=== PATIENT | male | born 1955 | race Caucasian/White ===

== ENCOUNTER 2020-10-18 15:17 | Inpatient (IN) | payer OTHER ==
[~2020-10-18] VITALS: Ht 69 cm; Wt 89.0 kg
--- NOTE | 2020-10-18 16:43 | Conscious Sedation/ASA ---
Conscious Sedation Pre-Proced Time 16:00 ASA Score 3 For ASA 3 and 4: Consider anesthesia and medical clearance. Also, for patients with a history of failed moderate sedation consider anesthesia. Airway Lungs Heart ASA score ASA 1: a normal healthy patient ASA 2: a patient with a mild systemic disease (mid diabetes, controlled hypertension, obesity x ASA 3: a patient with a severe systemic disease that limits activity (angina, COPD, prior Myocardial infarction) ASA 4: a patient with an incapacitating disease that is a constant threat to life (CHF, renal failure) ASA 5: a moribund patient not expected to survive 24 hrs. (ruptured aneurysm) ASA 6: a declared brain- patient whose organs are being harvested. For emergent operations, add the letter E after the classification Mallampati Classification Grade 3 Sedation Plan Analgesia, Amnesia, Plan communicated to team members, Discussed options with patient/fam, Discussed risks with patient/fam The patient is an appropriate candidate to undergo the planned procedure, sedation, and anesthesia. The patient immediately re-assessed prior to indication. CHELY MARIN MD October 18, 2020 16:43
[2020-10-18] MEDS ORDERED: PATIENT MAY USE OWN MEDS, ALL PO SCH (16:45)
--- NOTE | 2020-10-18 16:48 | Consultation-Cardiology ---
HPI-Cardiology Cardiology Consultation Date of Consultation 10/18/20 Date of Admission Time Seen by Provider: 16:43 Indication: Acute ST elevation myocardial infarction HPI 65 years old gentleman with no known past medical history, started to have chest pain in the retrosternal area around 11 AM, went to the emergency room in [facility] noted to have ST elevation, given morphine, aspirin and Plavix, reporting improvement in his chest pain, noted to have persistent in the ST elevation. No smoking, no alcohol, suffered from COVID-19 infection in June 2020 and he did not feel well after that infection. Home Medications & Allergies Allergies: Coded Allergies: No Known Drug Allergies (Unverified , 10/18/20) Home Medication List Reviewed: Yes [id number] Hx Patient Social History Marital Status: Employed/Student: employed Past Medical History Discussed below Family Medical History Family Medical Hx Noncontributory Review of Systems-General Review of Systems Constitutional: see HPI, malaise, weakness EENTM: see HPI, no symptoms reported Respiratory: see HPI; No cough, No dyspnea on exertion, No hemoptysis, No orthopnea, No phlegm, No short of breath, No stridor, No wheezing, No other Cardiovascular: see HPI, chest pain; No edema, No Hx of Intervention, No palpitations, No syncope, No vascular heart diseas, No other Gastrointestinal: no symptoms reported, see HPI Genitourinary: no symptoms reported, see HPI Musculoskeletal: no symptoms reported, see HPI Skin: no symptoms reported, see HPI Psychiatric/Neurological: No Symptoms Reported, See HPI Physical Exam Physical Exam Vital Signs Capillary Refill : Height, Weight, BMI Height: '" Weight: lbs. oz. kg; BMI Method: General Appearance: No Apparent Distress, WD/WN Eyes: Bilateral Eye Normal Inspection, Bilateral Eye PERRL, Bilateral Eye EOMI HEENT: PERRL/EOMI, TMs Normal, Normal ENT Inspection, Pharynx Normal, Moist Mucous Membranes Neck: Full Range of Motion, Normal Inspection, Non Tender, Supple, Carotid Bruit Respiratory: Chest Non Tender, Normal Breath Sounds, No Accessory Muscle Use, No Respiratory Distress Cardiovascular: Regular Rate, Rhythm, No Edema, No Gallop, No JVD, No Murmur, Normal Peripheral Pulses Gastrointestinal: Normal Bowel Sounds, No Organomegaly, No Pulsatile Mass, Non Tender, Soft Back: Normal Inspection, No CVA Tenderness, No Vertebral Tenderness Extremity: Normal Capillary Refill, Normal Inspection, Normal Range of Motion, Non Tender, No Calf Tenderness, No Pedal Edema Neurologic/Psychiatric: Alert, Oriented x3, No Motor/Sensory Deficits, Normal Mood/Affect Skin: Normal Color, Warm/Dry Lymphatic: No Adenopathy A/P-Cardiology Admission Diagnosis Acute ST elevation myocardial infarction Coronary artery disease Hypertension Hyperlipidemia Assessment/Plan Acute ST elevation myocardial infarction, emergency cardiac catheterization was carried out with stenting to the circumflex artery with excellent results. Continue on aspirin and Plavix and monitor Coronary artery disease, cardiac catheterization was carried out on October 18, 2020 showing ruptured plaque in the mid circumflex artery large dominant artery, successful balloon angioplasty and stenting using Rocio 3 x 23 mm expanded to 3.5 mm with excellent results. The LAD and right coronary artery has mild disease nonobstructive disease. Door to balloon time was 19 minutes. Hypertension, starting beta-blockers, monitor blood pressure Hyperlipidemia, starting Lipitor 80 mg, evaluate lipid profile Status post recent COVID-19 infection, recovered in June 2020. Still complaining of fatigue CHELY MARIN MD October 18, 2020 16:47
--- NOTE | 2020-10-18 16:53 | Cardiac Cath Report ---
Cardiac Cath Report Physician (s)/Manager Materials Management (s) Physician CHELY MARIN MD Pre-Procedure Diagnosis Pre-Procedure Diagnosis: Acute ST elevation myocardial infarction Post-Procedure Note Procedure Start Date: October 18, 2020 Name of Procedure: Left heart catheterization Emergency stenting to the left circumflex artery Findings/Procedure Note PROCEDURE NOTE: 65 years old gentleman with history of hypertension, recent COVID-19 infection, admitted with acute ST elevation myocardial infarction, Deckhand Engineer team were called, emergency cardiac catheterization was carried out. After explaining the procedure to the patient, all pros and cons were explained, all questions were answered. The patient signed the consent and then he was placed on the cardiac catheterization laboratory. Groin was prepped SL fashion local anesthesia was used. Sheath placed in the right femoral artery. Adelaide right and left catheter were used to access the coronary system. Pigtail was us ed to access the left ventricular cavity. Left ventriculogram was done Patient received 6000 units of heparin, FL guide was advanced to the left coronary system, BMW wire was advanced and parked in the distal circumflex artery, patient had ulcerated plaque in the mid circumflex artery just above the trifurcation, predilatation with 2.5 x 20 mm balloon, door to balloon time was 19 minutes, multiple inflation then I proceeded with deployment of Rocio 3 x 23 mm deployed under 15 jonathon then I used 3.5 noncompliant balloon to post dilate with excellent results. At the end of the procedure the sheath was removed. Closure device was deployed FINDINGS: Hemodynamics LV 125/6 end-diastolic pressure of 6 Aorta 127/77 mean of 95 ANATOMY: Left Main is free of obstructive disease Left Anterior Descending has mild disease nonobstructive disease Left Circumflex is large dominant artery with ulcerated plaque in the mid circumflex artery just above the trifurcation, successful balloon angioplasty with door to balloon time 19 minutes using 2.5 x 20 mm balloon then deployment of Rocio drug-eluting stent 3.0 x 23 mm postdilated with 3.5 NC Quantum balloon with excellent results Right Coronary Artery has mild disease nonobstructive disease LV Gram was done showing normal left ventricular size, normal systolic function, ejection fraction 60% CONCLUSION: 1. Ulcerated plaque in the mid circumflex artery with successful emergency angioplasty and stenting with door to balloon time 19 minutes, deployment of Rocio 3.0 x 23 mm stent postdilated to 3.5 mm with excellent results 2. Otherwise mild coronary artery disease nonobstructive disease 3. Normal left ventricular size and systolic function estimate ejection fraction 60% DISCUSSION AND RECOMMENDATION: Maximize medical therapy, started on aspirin Plavix, Lipitor and Toprol. Continue to monitor Anesthesia Type: Conscious Sedation Estimated blood loss (mL): 25 ml Contrast Amount: 80 ml Total Radiation Dose: 932 mGy Post-Procedure Diagnosis Post-operative diagnosis: Acute ST elevation myocardial infarction Coronary artery disease Hypertension Hyperlipidemia CHELY MARIN MD October 18, 2020 16:53
[2020-10-18] MEDS ORDERED: NITRO DRIP 25000 MCG/D5W 250 ML IV ONE (16:58)
[2020-10-18] MEDS ORDERED: HEParin (CATH LAB) 2,000 ML IV ONE (16:58)
[2020-10-18] MEDS ORDERED: HEParin 1000 UNIT/ML (10ML VIAL) FOR BOLUS ONE (16:58)
[2020-10-18] MEDS ORDERED: MIDAZOLAM 5 MG/5 ML (VERSED) VIAL ONE (16:58)
[2020-10-18] MEDS ORDERED: LIDOCAINE 1% INJ 20 ML 20 ML VIAL ONE (16:58)
[2020-10-18] MEDS ORDERED: NS IV 1000 ML 1,000 ML ONE (16:58)
[2020-10-18] MEDS ORDERED: fentaNYL INJ 100 MCG/2 ML AMP ONE (16:58)
[2020-10-18] MEDS: NS IV 1000 ML 1,000 ML IV SCH (17:00)
--- NOTE | 2020-10-18 17:02 | History & Physical ---
History of Present Illness HPI/Chief Complaint CC: STEMI s/p emergent cath with intervention HPI: This is a 65yoWM relatively new clinic patient of mine since 06/2020 when he was dx with COVID PNA and spent several days at [facility] recovering who had no PMH until COVID but dx with new onset DM with HGA1C of 11.8 and he failed PO OHA so he was maintained on insulin with excellent results who presented to the [facility] ER at 1505 with chest pain and was found to have persistent STEMI prompting emergent transfer to [facility] lab support technician at ~[address] Dowd performed an emergent cath procedure revealing large clot in large dominant circumflex artery requiring balloon and placement of stent with excellent results with door to needle time of 19 minutes. was updated in waiting room. Source: patient, RN/MD, old records Exam Limitations: clinical condition Date Seen 10/18/20 Time Seen by a Provider: 16:45 Attending Physician Anita Dowd MD PCP No,Local Physician Referring Physician Date of Admission October 18, 2020 at 16:25 Home Medications & Allergies Home Medications Reviewed patient Home Medication Reconciliation performed by pharmacy medication reconciliations wireless field technician and/or nursing. Patients Allergies have been reviewed. Allergies Allergies Coded Allergies No Known Drug Allergies (Unverified10/18/20) Past Yufuvtc-Amsfnn-Hqezze Hx Past Med/Social Hx: Reviewed Nursing Past Med/Soc Hx, Reviewed and Corrections made Patient Social History Marrital Status: Employed/Student: employed Alcohol Use: Denies Use Smoking Status: Never a Smoker Past Medical History Respiratory: Pneumonia COVID-19 06/2020 Endocrine: Diabetes, Insulin dep (06/2020) Review of Systems Constitutional: see HPI Cardiovascular: chest pain Physical Exam Physical Exam Vital Signs Vital Signs - First Documented 10/18/20 10/18/20 10/18/20 17:00 17:15 18:15 Temp 37.2 Pulse 75 Resp 13 B/P (MAP) 129/76 (93) Pulse Ox 96 O2 Delivery Nasal Cannula O2 Flow Rate 2.00 Capillary Refill : Height, Weight, BMI Height: '" Weight: lbs. oz. kg; BMI Method: General Appearance: No Apparent Distress, WD/WN Eyes: Bilateral Eye Normal Inspection, Bilateral Eye PERRL, Bilateral Eye EOMI HEENT: PERRL/EOMI, Normal ENT Inspection, Pharynx Normal, Moist Mucous Membranes Neck: Full Range of Motion, Normal Inspection, Non Tender, Supple, Carotid Bruit Respiratory: Chest Non Tender, Normal Breath Sounds, No Accessory Muscle Use, No Respiratory Distress Cardiovascular: Regular Rate, Rhythm, No Edema, No Gallop, No JVD, No Murmur, Normal Peripheral Pulses Gastrointestinal: Normal Bowel Sounds, No Organomegaly, No Pulsatile Mass, Non Tender, Soft Back: Normal Inspection, No CVA Tenderness, No Vertebral Tenderness Extremity: Normal Capillary Refill, Normal Inspection, Normal Range of Motion, Non Tender, No Calf Tenderness, No Pedal Edema Neurologic/Psychiatric: Alert, Oriented x3, No Motor/Sensory Deficits, Normal Mood/Affect Skin: Normal Color, Warm/Dry Lymphatic: No Adenopathy Results Results/Procedures Labs Patient resulted labs reviewed. Assessment/Plan Admission Diagnosis Assessment: STEMI s/p cath with intervention DM insulin dependent since 06/2020 COVID PNA 06/2020 Plan: Insulin SSI Cardiac meds Appreciate Dr Dowd and impressive cath procedure Admission Status: Inpatient Order (span 2 midnights) Reason for Inpatient Admission: STEMI Diagnosis/Problems Diagnosis/Problems (1) STEMI (ST elevation myocardial infarction) SHAHBAZ EDEN DO October 18, 2020 17:02
[2020-10-18] MEDS: inSUlin ASPART (NovoLOG) 1 UNIT/0.01 ML (CHARGE PER UNIT) SC SCH (20:22)
[2020-10-18] MEDS ORDERED: MELATONIN 3 MG TABLET ONE (21:50)
[2020-10-18] MEDS: MELATONIN 3 MG TABLET PO SCH (21:59)
[2020-10-19 03:31] LABS: BASOPHILS # (AUTO) 0.1 10^3/uL (0.0-0.1); BASOPHILS % (AUTO) 1 % (0-10); EOSINOPHILS # (AUTO) 0.3 10^3/uL (0.0-0.3); EOSINOPHILS % (AUTO) 3 % (0-10); HEMATOCRIT 44 % (40-54); LYMPHOCYTES # (AUTO) 2.5 10^3/uL (1.0-4.0); LYMPHOCYTES % (AUTO) 22 % (12-44); MEAN CORPUSCULAR HEMOGLOBIN 30 pg (25-34); MEAN CORPUSCULAR HGB CONC 34 g/dL (32-36); MEAN CORPUSCULAR VOLUME 87 fL (80-99); MEAN PLATELET VOLUME 8.6 fL (9.0-12.2); MONOCYTES # (AUTO) 1.1 10^3/uL (0.0-1.0); MONOCYTES % (AUTO) 9 % (0-12); NEUTROPHILS # (AUTO) 7.6 10^3/uL (1.8-7.8); NEUTROPHILS % (AUTO) 65 % (42-75); PLATELET COUNT 272 10^3/uL (130-400); WHITE BLOOD COUNT 11.7 10^3/uL (4.3-11.0)
[2020-10-19 03:50] LABS: ALANINE AMINOTRANSFERASE 22 U/L (0-55); ALBUMIN 3.3 GM/DL (3.2-4.5); ALKALINE PHOSPHATASE 57 U/L (40-136); BILIRUBIN,TOTAL 0.3 MG/DL (0.1-1.0); BUN/CREATININE RATIO 18; CALCIUM 8.3 MG/DL (8.5-10.1); CARBON DIOXIDE 23 MMOL/L (21-32); CHLORIDE 107 MMOL/L (98-107); CHOLESTEROL 155 MG/DL (< 200); CREATININE SERUM 1.13 MG/DL (0.60-1.30); GFR ESTIMATED > 60; GLUCOSE 131 MG/DL (70-105); HDL CHOLESTEROL 25 MG/DL (40-60); POTASSIUM 3.8 MMOL/L (3.6-5.0); SODIUM 136 MMOL/L (135-145); TOTAL PROTEIN 6.6 GM/DL (6.4-8.2); TRIGLYCERIDES 205 MG/DL (<150); VLDL CHOLESTEROL 41 MG/DL (5-40)
[2020-10-19] MEDS: NS IV 1000 ML 1,000 ML IV SCH ×2 (04:40→13:54)
[2020-10-19] MEDS: inSUlin ASPART (NovoLOG) 1 UNIT/0.01 ML (CHARGE PER UNIT) SC SCH ×4 (06:21→21:16)
--- NOTE | 2020-10-19 07:53 | Cardiology Progress Note ---
Subjective Date Seen by Provider: October 19, 2020 Time Seen by Provider: 07:53 Subjective/Events-last exam Patient is laying down in bed, feeling better, no further episodes of chest pain, groin is healing well. Review of Systems General: No Chills, No Night Sweats, No Fatigue, No Malaise, No Appetite, No Other HEENT: No Head Aches, No Visual Changes, No Eye Pain, No Ear Pain, No Dysphasia, No Sinus Congestion, No Post Nasal Drip, No Sore Throat, No Other Pulmonary: No Dyspnea, No Cough, No Pleuritic Chest Pain, No Other Cardiovascular: No: Chest Pain, Palpitations, Orthopnea, Paroxysmal Noc. Dyspnea, Edema, Lt Headedness, Other Objective-Cardiology Exam Last Set of Vital Signs Vital Signs 10/18/20 10/18/20 10/18/20 10/19/20 10/19/20 18:00 18:45 22:00 04:00 06:00 Temp 37.2 Pulse 49 Resp 13 B/P (MAP) 140/81 (100) Pulse Ox 96 O2 Delivery Room Air O2 Flow Rate 2.00 Capillary Refill : Less Than 3 Seconds I&O Intake and Output 10/19/20 00:00 Intake Total 0 ml Output Total 300 ml Balance -300 ml Intake Oral 0 ml Output Urine Total 300 ml Daily Weight Change Yes, 24-33 lbs General: Alert, Oriented X3, Cooperative HEENT: Atraumatic, PERRLA Neck: Supple, No JVD, No Thyromegaly Lungs: Clear to Auscultation, Normal Air Movement Heart: Regular Rate, Normal S1, Normal S2, No Murmurs Abdomen: Normal Bowel Sounds, Soft, No Tenderness, No Hepatosplenomegaly, No Masses Extremities: No Clubbing, No Cyanosis, No Edema, Normal Pulses, No Tenderness/Swelling Skin: No Rashes, No Breakdown, No Significant Lesion Neuro: Normal Gait, Normal Speech, Strength at 5/5 X4 Ext, Normal Tone, Sensation Intact Psych/Mental Status: Mental Status NL, Mood NL Results Lab Laboratory Tests 10/19/20 03:08 A/P-Cardiology Admission Diagnosis Acute ST elevation myocardial infarction Coronary artery disease Hypertension Hyperlipidemia Assessment/Plan Acute ST elevation myocardial infarction, emergency cardiac catheterization was carried out with stenting to the circumflex artery with excellent results. Continue on aspirin and Plavix and monitor Coronary artery disease, cardiac catheterization was carried out on October 18, 2020 showing ruptured plaque in the mid circumflex artery large dominant artery, successful balloon angioplasty and stenting using Rocio 3 x 23 mm expanded to 3.5 mm with excellent results. The LAD and right coronary artery has mild disease nonobstructive disease. Door to balloon time was 19 minutes. Hypertension, starting beta-blockers, monitor blood pressure Sinus bradycardia, asymptomatic, probably secondary to beta-blockers. Continue low-dose beta-blockers and monitor tolerance and response Hyperlipidemia, starting Lipitor 80 mg, evaluate lipid profile Status post recent COVID-19 infection, recovered in June 2020. Still complaining of fatigue CHELY MARIN MD October 19, 2020 07:53
[2020-10-19] MEDS: PANTOPRAZOLE 40 MG (PROTONIX) TAB PO SCH (08:13)
[2020-10-19] MEDS: ASPIRIN E.C. 81 MG (ECOTRIN) TAB PO SCH (08:13)
[2020-10-19] MEDS: CLOPIDOGREL 75 MG (PLAVIX) TABLET PO SCH (08:13)
[2020-10-19] MEDS ORDERED: ASPI-1238 PO (10:31)
[2020-10-19] MEDS ORDERED: INSU100I29 SC (10:31)
[2020-10-19] MEDS ORDERED: IBUP-2185 PO (10:31)
--- NOTE | 2020-10-19 11:23 | Progress Note ---
Subjective Date Seen by a Provider: October 19, 2020 Time Seen by a Provider: 11:00 Subjective/Events-last exam Patient feels good Told me he had severe pain at ~ 1000 when he was putting in fence He thought the pain was his back in the mid back region Tried to see 2 chiropractors before going to ER Dr Dowd pleased with outcome of cath Meds tolerated Doing well Review of Systems General: Fatigue Objective Exam Last Set of Vital Signs Vital Signs Date Time Temp Pulse Resp B/P (MAP) Pulse Ox O2 Delivery O2 Flow Rate FiO2 10/19/20 11:00 59 10 117/76 (90) Room Air 10/19/20 09:08 36.8 10/19/20 08:15 98 10/18/20 18:00 2.00 Capillary Refill : Less Than 3 Seconds I&O Intake and Output 10/19/20 00:00 Intake Total 0 ml Output Total 300 ml Balance -300 ml Intake Oral 0 ml Output Urine Total 300 ml Daily Weight Change Yes, 24-33 lbs General: Alert, Oriented X3, Cooperative, No Acute Distress Lungs: Clear to Auscultation Heart: Regular Rate Neuro: Normal Gait, Normal Speech, Strength at 5/5 X4 Ext, Normal Tone Results Lab Laboratory Tests 10/18/20 20:18: Glucometer 133H 10/19/20 03:08: White Blood Count 11.7H, Red Blood Count 5.08, Hemoglobin 15.0, Hematocrit 44, Mean Corpuscular Volume 87, Mean Corpuscular Hemoglobin 30, Mean Corpuscular Hemoglobin Concent 34, Red Cell Distribution Width 12.2, Platelet Count 272, Mean Platelet Volume 8.6L, Immature Granulocyte % (Auto) 1, Neutrophils (%) (Auto) 65, Lymphocytes (%) (Auto) 22, Monocytes (%) (Auto) 9, Eosinophils (%) (Auto) 3, Basophils (%) (Auto) 1, Neutrophils # (Auto) 7.6, Lymphocytes # (Auto) 2.5, Monocytes # (Auto) 1.1H, Eosinophils # (Auto) 0.3, Basophils # (Auto) 0.1, Immature Granulocyte # (Auto) 0.1, Sodium Level 136, Potassium Level 3.8, Chloride Level 107, Carbon Dioxide Level 23, Anion Gap 6, Blood Urea Nitrogen 20H, Creatinine 1.13, Estimat Glomerular Filtration Rate > 60, BUN/Creatinine Ratio 18, Glucose Level 131H, Calcium Level 8.3L, Corrected Calcium 8.9, Total Bilirubin 0.3, Aspartate Amino Transf (AST/SGOT) 36H, Alanine Aminotransferase (ALT/SGPT) 22, Alkaline Phosphatase 57, Troponin I 5.173*H, Total Protein 6.6, Albumin 3.3, Triglycerides Level 205H, Cholesterol Level 155, LDL Cholesterol Direct 108, VLDL Cholesterol 41H, HDL Cholesterol 25L 10/19/20 10:21: Glucometer 176H Assessment/Plan Assessment/Plan Assess & Plan/Chief Complaint Assessment: STEMI s/p cath with intervention DM insulin dependent since 06/2020 COVID PNA 06/2020 Plan: Insulin SSI Cardiac meds Appreciate Dr Dowd and impressive cath procedure 10/19/20: Monitor closely Sugar management Diagnosis/Problems Diagnosis/Problems (1) STEMI (ST elevation myocardial infarction) SHAHBAZ EDEN DO October 19, 2020 11:23
[2020-10-19] MEDS: MELATONIN 3 MG TABLET PO SCH (22:11)
[2020-10-20] MEDS: NS IV 1000 ML 1,000 ML IV SCH ×2 (00:52→09:00)
[2020-10-20] MEDS: inSUlin ASPART (NovoLOG) 1 UNIT/0.01 ML (CHARGE PER UNIT) SC SCH (06:13)
[2020-10-20 06:21] LABS: BASOPHILS # (AUTO) 0.1 10^3/uL (0.0-0.1); BASOPHILS % (AUTO) 1 % (0-10); EOSINOPHILS # (AUTO) 0.4 10^3/uL (0.0-0.3); EOSINOPHILS % (AUTO) 4 % (0-10); HEMATOCRIT 46 % (40-54); HEMOGLOBIN 15.5 g/dL (13.3-17.7); LYMPHOCYTES # (AUTO) 2.2 10^3/uL (1.0-4.0); LYMPHOCYTES % (AUTO) 20 % (12-44); MEAN CORPUSCULAR HEMOGLOBIN 29 pg (25-34); MEAN CORPUSCULAR HGB CONC 34 g/dL (32-36); MEAN CORPUSCULAR VOLUME 86 fL (80-99); MEAN PLATELET VOLUME 8.5 fL (9.0-12.2); MONOCYTES # (AUTO) 1.1 10^3/uL (0.0-1.0); MONOCYTES % (AUTO) 10 % (0-12); NEUTROPHILS # (AUTO) 7.3 10^3/uL (1.8-7.8); NEUTROPHILS % (AUTO) 65 % (42-75); PLATELET COUNT 263 10^3/uL (130-400); WHITE BLOOD COUNT 11.2 10^3/uL (4.3-11.0)
[2020-10-20 06:31] LABS: ALBUMIN 3.6 GM/DL (3.2-4.5); CHLORIDE 105 MMOL/L (98-107); SODIUM 136 MMOL/L (135-145)
[2020-10-20 06:33] LABS: CALCIUM 8.9 MG/DL (8.5-10.1)
[2020-10-20 06:34] LABS: GLUCOSE 107 MG/DL (70-105); TOTAL PROTEIN 7.2 GM/DL (6.4-8.2)
[2020-10-20 06:35] LABS: CARBON DIOXIDE 23 MMOL/L (21-32)
[2020-10-20 06:36] LABS: BILIRUBIN,TOTAL 0.7 MG/DL (0.1-1.0)
[2020-10-20 06:37] LABS: ALKALINE PHOSPHATASE 56 U/L (40-136)
[2020-10-20 06:38] LABS: CREATININE SERUM 0.99 MG/DL (0.60-1.30); GFR ESTIMATED > 60
[2020-10-20 06:39] LABS: BUN/CREATININE RATIO 18
[2020-10-20 06:40] LABS: ALANINE AMINOTRANSFERASE 24 U/L (0-55)
--- NOTE | 2020-10-20 08:32 | Cardiology Progress Note ---
Subjective Date Seen by Provider: October 20, 2020 Time Seen by Provider: 08:31 Subjective/Events-last exam Patient was seen at bedside, laying down comfortably, no chest pain was noted, feeling better Review of Systems General: No Chills, No Night Sweats, No Fatigue, No Malaise, No Appetite, No Other HEENT: No Head Aches, No Visual Changes, No Eye Pain, No Ear Pain, No Dysphasia, No Sinus Congestion, No Post Nasal Drip, No Sore Throat, No Other Pulmonary: No Dyspnea, No Cough, No Pleuritic Chest Pain, No Other Cardiovascular: No: Chest Pain, Palpitations, Orthopnea, Paroxysmal Noc. Dyspnea, Edema, Lt Headedness, Other Objective-Cardiology Exam Last Set of Vital Signs Vital Signs 10/18/20 10/19/20 10/19/20 10/20/20 18:00 08:15 20:00 08:00 Temp 36.8 Pulse 81 Resp 12 B/P (MAP) 105/69 (81) Pulse Ox 98 O2 Delivery Room Air O2 Flow Rate 2.00 Capillary Refill : Less Than 3 Seconds I&O Intake and Output 10/20/20 00:00 Intake Total 1490 ml Output Total 3095 ml Balance -1605 ml Intake Oral 1490 ml Output Urine Total 3095 ml General: Alert, Oriented X3, Cooperative, No Acute Distress HEENT: Atraumatic, PERRLA Neck: Supple, No JVD, No Thyromegaly Lungs: Clear to Auscultation Heart: Regular Rate, Normal S1, Normal S2 Abdomen: Normal Bowel Sounds, Soft, No Tenderness, No Hepatosplenomegaly, No Masses Extremities: No Clubbing, No Cyanosis, No Edema, Normal Pulses, No Tenderness/S welling Skin: No Rashes, No Breakdown, No Significant Lesion Neuro: Normal Gait, Normal Speech, Strength at 5/5 X4 Ext, Normal Tone Psych/Mental Status: Mental Status NL, Mood NL Results Lab Laboratory Tests 10/20/20 06:13 A/P-Cardiology Admission Diagnosis Acute ST elevation myocardial infarction Coronary artery disease Hypertension Hyperlipidemia Assessment/Plan Acute ST elevation myocardial infarction, emergency cardiac catheterization was carried out with stenting to the circumflex artery with excellent results. Occasional on compliance with aspirin and Plavix Coronary artery disease, cardiac catheterization was carried out on October 18, 2020 showing ruptured plaque in the mid circumflex artery large dominant artery, successful balloon angioplasty and stenting using Rocio 3 x 23 mm expanded to 3.5 mm with excellent results. The LAD and right coronary artery has mild disease nonobstructive disease. Door to balloon time was 19 minutes. Okay for discharge home, follow-up as an outpatient Hypertension, borderline bradycardia, discontinue beta-maddy Sinus bradycardia, asymptomatic, probably secondary to beta-blockers. Continue low-dose beta-blockers and monitor tolerance and response Hyperlipidemia, starting Lipitor 80 mg, evaluate lipid profile Status post recent COVID-19 infection, recovered in June 2020. Still complaining of fatigue CHELY MARIN MD October 20, 2020 08:32
[2020-10-20] MEDS ORDERED: CLOP75TA28 PO (08:34)
[2020-10-20] MEDS ORDERED: ATOR80TA76 PO (08:34)
--- NOTE | 2020-10-20 08:34 | Discharge Inst-Post CATH ---
Discharge Inst-CATH/EP Problems Reviewed?: Yes Post Cardiac Cath/EP D/C Inst Follow Up/Plan Appointment with Dr. Dowd's office in 2 weeks <b>CARDIAC CATH/EP PROCEDURE DISCHARGE INSTRUCTIONS</b> ACTIVITY * Go Home directly and rest. * Limit activity of the leg (or wrist if it was used) for 7 days including aerobics, swimming, jogging, bicycling, etc. * Restrict stair-climbing for 7 days if possible, if not, climb up with your non-cath leg, then bring together on the same step. * Avoid lifting, pushing, pulling or excessive movement of the affected extremity for 7 days. * Customary sexual activity may be resumed after 2 days-use caution not to use a position that strains or causes pain to the affected extremity. * No driving for 24 hours. * NO SMOKING. * Avoid straining for bowel movements for 7 days. * Gentle walking on level ground is allowed. * Returning to work will depend on the type of procedure and the results. Your doctor will discuss this with you. CALL YOUR DOCTOR FOR ANY OF THE FOLLOWING: *If bleeding from the puncture site occurs- Apply gentle pressure to site with clean cloth and call your doctor or EMS. * If a knot or lump forms under the skin, increases in size, or causes pain. * If bruising appears to be worsening or moving further down your leg instead of disappearing. * Temperature above 101 F. CARE OF YOUR GROIN INCISION; * Bruising or purple discoloration of the skin near the puncture site is common. * You may shower only, no bathtub bathing for 5 days. Be careful to avoid slipping as your leg may feel stiff. * If a closure device was used on your femoral artery, please see the attached guide regarding care of the device and your leg. * Leave dressing on FOR 24 hours. CARE OF YOUR WRIST INCISION; * Bruising or purple discoloration of the skin near the puncture site is common. * You may shower. * DO NOT submerge wrist. * Leave dressing on FOR 24 hours. CHELY DOWD MD October 20, 2020 08:34
[2020-10-20] MEDS: CLOPIDOGREL 75 MG (PLAVIX) TABLET PO SCH (08:38)
[2020-10-20] MEDS: ASPIRIN E.C. 81 MG (ECOTRIN) TAB PO SCH (08:38)
[2020-10-20] MEDS: PANTOPRAZOLE 40 MG (PROTONIX) TAB PO SCH (08:38)
--- NOTE | 2020-10-20 10:31 | Discharge Summary ---
Diagnosis/Chief Complaint Date of Admission October 18, 2020 at 16:25 Date of Discharge Discharge Date: October 20, 2020 Discharge Diagnosis Assessment: STEMI s/p cath with intervention DM insulin dependent since 06/2020 COVID PNA 06/2020 Plan: Insulin SSI Cardiac meds Appreciate Dr Dowd and impressive cath procedure 10/19/20: Monitor closely Sugar management Discharge Summary Discharge Physical Examination Allergies: Coded Allergies: No Known Drug Allergies (Unverified , 10/18/20) Vitals & I&Os Vital Signs Date Time Temp Pulse Resp B/P (MAP) Pulse Ox O2 Delivery O2 Flow Rate FiO2 10/20/20 11:20 10/20/20 10:00 61 14 Room Air 10/20/20 08:40 36.9 10/19/20 08:15 98 10/18/20 18:00 2.00 General Appearance: Alert, Oriented X3, Cooperative Respiratory: Clear to Auscultation Cardiovascular: Regular Rate Neuro: Normal Gait, Normal Speech, Strength at 5/5 X4 Ext Psych/Mental Status: Mental Status NL Hospital Course Was the Problem List Reviewed?: Yes Standard course after transfered to research laboratory manager emergently from [facility] with STEMI. label operator intervention by Dr Dowd was successful and stent placed. Plavix started with statin. Overall he had no issues post op and was DC in improved condition. Labs (last 24 hrs) Laboratory Tests 10/18/20 20:18: Glucometer 133H 10/19/20 03:08: White Blood Count 11.7H, Red Blood Count 5.08, Hemoglobin 15.0, Hematocrit 44, Mean Corpuscular Volume 87, Mean Corpuscular Hemoglobin 30, Mean Corpuscular Hemoglobin Concent 34, Red Cell Distribution Width 12.2, Platelet Count 272, Mean Platelet Volume 8.6L, Immature Granulocyte % (Auto) 1, Neutrophils (%) (Auto) 65, Lymphocytes (%) (Auto) 22, Monocytes (%) (Auto) 9, Eosinophils (%) (Auto) 3, Basophils (%) (Auto) 1, Neutrophils # (Auto) 7.6, Lymphocytes # (Auto) 2.5, Monocytes # (Auto) 1.1H, Eosinophils # (Auto) 0.3, Basophils # (Auto) 0.1, Immature Granulocyte # (Auto) 0.1, Sodium Level 136, Potassium Level 3.8, Chloride Level 107, Carbon Dioxide Level 23, Anion Gap 6, Blood Urea Nitrogen 20H, Creatinine 1.13, Estimat Glomerular Filtration Rate > 60, BUN/Creatinine Ratio 18, Glucose Level 131H, Mean Blood Glucose 154H, Hemoglobin A1c 7.0H, Calcium Level 8.3L, Corrected Calcium 8.9, Total Bilirubin 0.3, Aspartate Amino Transf (AST/SGOT) 36H, Alanine Aminotransferase (ALT/SGPT) 22, Alkaline Phosphatase 57, Troponin I 5.173*H, Total Protein 6.6, Albumin 3.3, Trig lycerides Level 205H, Cholesterol Level 155, LDL Cholesterol Direct 108, VLDL Cholesterol 41H, HDL Cholesterol 25L, Thyroid Stimulating Hormone (TSH) 3.20 10/19/20 10:21: Glucometer 176H 10/19/20 15:29: Glucometer 219H 10/19/20 20:44: Glucometer 155H 10/20/20 06:12: Glucometer 110 10/20/20 06:13: White Blood Count 11.2H, Red Blood Count 5.34, Hemoglobin 15.5, Hematocrit 46, Mean Corpuscular Volume 86, Mean Corpuscular Hemoglobin 29, Mean Corpuscular Hemoglobin Concent 34, Red Cell Distribution Width 12.4, Platelet Count 263, Mean Platelet Volume 8.5L, Immature Granulocyte % (Auto) 1, Neutrophils (%) (Auto) 65, Lymphocytes (%) (Auto) 20, Monocytes (%) (Auto) 10, Eosinophils (%) (Auto) 4, Basophils (%) (Auto) 1, Neutrophils # (Auto) 7.3, Lymphocytes # (Auto) 2.2, Monocytes # (Auto) 1.1H, Eosinophils # (Auto) 0.4H, Basophils # (Auto) 0.1, Immature Granulocyte # (Auto) 0.1, Sodium Level 136, Potassium Level 4.0, Chloride Level 105, Carbon Dioxide Level 23, Anion Gap 8, Blood Urea Nitrogen 18, Creatinine 0.99, Estimat Glomerular Filtration Rate > 60, BUN/Creatinine Ratio 18, Glucose Level 107H, Calcium Level 8.9, Corrected Calcium 9.2, Total Bilirubin 0.7, Aspartate Amino Transf (AST/SGOT) 28, Alanine Aminotransferase ( ALT/SGPT) 24, Alkaline Phosphatase 56, Total Protein 7.2, Albumin 3.6 Microbiology 10/18/20 MRSA Screen - Final, Complete MRSA not isolated Pending Labs Microbiology Date/Time Source Procedure Growth Status 10/18/20 18:17 Nasal MRSA Screen - Final MRSA not isolated Complete Laboratory Tests 10/18/20 20:18: Glucometer 133 10/19/20 03:08: White Blood Count 11.7, Red Blood Count 5.08, Hemoglobin 15.0, Hematocrit 44, Mean Corpuscular Volume 87, Mean Corpuscular Hemoglobin 30, Mean Corpuscular Hemoglobin Concent 34, Red Cell Distribution Width 12.2, Platelet Count 272, Mean Platelet Volume 8.6, Immature Granulocyte % (Auto) 1, Neutrophils (%) (Auto) 65, Lymphocytes (%) (Auto) 22, Monocytes (%) (Auto) 9, Eosinophils (%) (Auto) 3, Basophils (%) (Auto) 1, Neutrophils # (Auto) 7.6, Lymphocytes # (Auto) 2.5, Monocytes # (Auto) 1.1, Eosinophils # (Auto) 0.3, Basophils # (Auto) 0.1, Immature Granulocyte # (Auto) 0.1, Sodium Level 136, Potassium Level 3.8, Chloride Level 107, Carbon Dioxide Level 23, Anion Gap 6, Blood Urea Nitrogen 20, Creatinine 1.13, Estimat Glomerular Filtration Rate > 60, BUN/Creatinine Ratio 18, Glucose Level 131, Mean Blood Glucose 154, Hemoglobin A1c 7.0, Calcium Level 8.3, Corrected Calcium 8.9, Total Bilirubin 0.3, Aspartate Amino Transf (AST/SGOT) 36, Alanine Aminotransferase (ALT/SGPT) 22, Alkaline Phosphatase 57, Troponin I 5.173, Total Protein 6.6, Albumin 3.3, Triglycerides Level 205, Cholesterol Level 155, LDL Cholesterol Direct 108, VLDL Cholesterol 41, HDL Cholesterol 25, Thyroid Stimulating Hormone (TSH) 3.20 10/19/20 10:21: Glucometer 176 10/19/20 15:29: Glucometer 219 10/19/20 20:44: Glucometer 155 10/20/20 06:12: Glucometer 110 10/20/20 06:13: White Blood Count 11.2, Red Blood Count 5.34, Hemoglobin 15.5, Hematocrit 46, Mean Corpuscular Volume 86, Mean Corpuscular Hemoglobin 29, Mean Corpuscular Hemoglobin Concent 34, Red Cell Distribution Width 12.4, Platelet Count 263, Mean Platelet Volume 8.5, Immature Granulocyte % (Auto) 1, Neutrophils (%) (Auto) 65, Lymphocytes (%) (Auto) 20, Monocytes (%) (Auto) 10, Eosinophils (%) (Auto) 4, Basophils (%) (Auto) 1, Neutrophils # (Auto) 7.3, Lymphocytes # (Auto) 2.2, Monocytes # (Auto) 1.1, Eosinophils # (Auto) 0.4, Basophils # (Auto) 0.1, Immature Granulocyte # (Auto) 0.1, Sodium Level 136, Potassium Level 4.0, Chloride Level 105, Carbon Dioxide Level 23, Anion Gap 8, Blood Urea Nitrogen 18, Creatinine 0.99, Estimat Glomerular Filtration Rate > 60, BUN/Creatinine Ratio 18, Glucose Level 107, Calcium Level 8.9, Corrected Calcium 9.2, Total Bilirubin 0.7, Aspartate Amino Transf (AST/SGOT) 28, Alanine Aminotransferase (ALT/SGPT) 24, Alkaline Phosphatase 56, Total Protein 7.2, Albumin 3.6 Discharge Home Medications: Active Scripts Active Atorvastatin Calcium 80 Mg Tablet 80 Mg PO HS Clopidogrel (Clopidogrel Bisulfate) 75 Mg Tablet 75 Mg PO DAILY Reported Aspirin EC (Aspirin) 81 Mg Tablet.dr 81 Mg PO DAILY Levemir Flextouch (Insulin Detemir) 100 Unit/1 Ml Insuln.pen 25 Units SC BID Instructions to patient/family Please see electronic discharge instructions given to patient. Diagnosis/Problems Diagnosis/Problems (1) STEMI (ST elevation myocardial infarction) SHAHBAZ EDEN DO October 20, 2020 10:31
== END 2020-10-20 11:20 | disposition home or self-care (01) | DRG 247 ==
LOC: SURG 16:25 → ICU 16:56
PROVIDERS: ADMIT Internal Medicine Cardiovascular Disease; ATTEND Internal Medicine Cardiovascular Disease
PROC: 027034Z Dilation of Coronary Artery, One Artery with Drug-eluting Intraluminal Device, Percutaneous Approach (ICD-10-PCS; principal; 2020-10-18)
PROC: 4A023N7 Measurement of Cardiac Sampling and Pressure, Left Heart, Percutaneous Approach (ICD-10-PCS; 2020-10-18)
PROC: B2111ZZ Fluoroscopy of Multiple Coronary Arteries using Low Osmolar Contrast (ICD-10-PCS; 2020-10-18)
PROC: B2151ZZ Fluoroscopy of Left Heart using Low Osmolar Contrast (ICD-10-PCS; 2020-10-18)
DX: I21.3 ST elevation (STEMI) myocardial infarction of unspecified site (principal); I25.10 Atherosclerotic heart disease of native coronary artery without angina pectoris; I10 Essential (primary) hypertension; E78.5 Hyperlipidemia, unspecified; Z86.16 Personal history of COVID-19; E11.9 Type 2 diabetes mellitus without complications; R00.1 Bradycardia, unspecified; T50.2X5A Adverse effect of carbonic-anhydrase inhibitors, benzothiadiazides and other diuretics, initial encounter; Z79.4 Long term (current) use of insulin
CPT/HCPCS: 36415; 80053; 80061; 82947; 83036; 84443; 84484; 85025; 85027; 87081; 93005; 93458

== ENCOUNTER → 2021-05-22 | Outpatient (CLI) | payer MEDICARE ==
[~2021-05-22] MED LIST: ASPI-1238 PO; ATOR80TA76 PO; CLOP75TA28 PO; IBUP-2185 PO; INSU100I29 SC
== END ==
LOC: CARD 09:42
PROVIDERS: ATTEND Physician Assistant
DX: I10 Essential (primary) hypertension (principal); I25.10 Atherosclerotic heart disease of native coronary artery without angina pectoris
CPT/HCPCS: 93306

== ENCOUNTER → 2021-07-11 | Outpatient (CLI) | payer MEDICARE ==
[~2021-07-11] VITALS: Ht 175 cm; Wt 91.0 kg
[~2021-07-11] MED LIST changes: +CATHETER FLUSH 10 ML SYR IV PRN; +REGADENOSON 0.4 MG/5 ML SYR (LEXISCAN) IV ONE
[2021-07-11 12:43] VITALS: BP 128/50
[2021-07-11 12:51] VITALS: BP 137/68
--- NOTE | 2021-07-11 14:10 | Cardiology Stress Test Report ---
Stress Test Report Date of Procedure/Referring: Date of Procedure: Jul 11, 2021 Suma Haider Admitting Physician No,Local Physician Indications: HTN Baseline Heart Rate: 51 Baseline Blood Pressure: Blood Pressure Systolic: 137 Blood Pressure Diastolic: 68 Baseline Vitals Vital Signs Date Time Temp Pulse Resp B/P (MAP) Pulse Ox O2 Delivery O2 Flow Rate FiO2 07/11/21 12:43 78 18 128/50 (76) 98 Room Air Baseline EKG: Baseline EKG: NSR Summary After explaining the procedure to the patient, he signed a consent and then brought to the stress nuclear laboratory. Patient received 0.4 mg Lexiscan for stress test, ECG, heart rate and blood pressure were monitored continuously. Resting and stress dose of radio tracer were injected, imaging was acquired and reviewed in short axis, horizontal long axis and vertical long axis views. TID: 1.12 SSS: 5 SDS: 5 EF: 57 1. Patient was unable to exercise beyond 2 minutes and 40 seconds on standard Bo protocol, achieving 63% of maximum expected heart rate, test was terminated and converted to Lexiscan Myoview stress test 2. Patient tolerated Lexiscan well 3. Diaphragmatic attenuation with reversible ischemia involving the mid to apical inferior wall and inferolateral wall 4. Normal left ventricular size, EF 57% CHELY MARIN MD Jul 11, 2021 14:10
== END ==
LOC: CARD 12:15
PROVIDERS: ATTEND Physician Assistant
DX: I10 Essential (primary) hypertension (principal); I25.10 Atherosclerotic heart disease of native coronary artery without angina pectoris
CPT/HCPCS: 78452; 93017; A9502

== ENCOUNTER 2021-07-25 11:00 | Day surgery (SDC) | payer MEDICARE ==
[2021-07-25] VITALS (9 sets, daily range): BP systolic 101–140; BP diastolic 60–86
[~2021-07-25] VITALS: Ht 175 cm; Wt 92.0 kg
[2021-07-25 10:06] LABS: BILIRUBIN,URINE NEGATIVE (NEGATIVE); CLARITY,URINE CLEAR; COLOR,URINE YELLOW; GLUCOSE, URINE (UA) NEGATIVE (NEGATIVE); KETONES,URINE NEGATIVE (NEGATIVE); LEUKOCYTE ESTERASE ,URINE NEGATIVE (NEGATIVE); NITRITE,URINE NEGATIVE (NEGATIVE); PROTEIN,URINE NEGATIVE (NEGATIVE)
[2021-07-25 10:12] LABS: HEMATOCRIT 51 % (40-54); HEMOGLOBIN 16.7 g/dL (13.3-17.7); MEAN CORPUSCULAR HEMOGLOBIN 29 pg (25-34); MEAN CORPUSCULAR HGB CONC 33 g/dL (32-36); MEAN CORPUSCULAR VOLUME 89 fL (80-99); MEAN PLATELET VOLUME 8.6 fL (9.0-12.2); PLATELET COUNT 305 10^3/uL (130-400); WHITE BLOOD COUNT 11.1 10^3/uL (4.3-11.0)
[2021-07-25 10:17] LABS: INR 0.9 (0.8-1.4); PROTHROMBIN TIME PATIENT 12.7 SEC (12.2-14.7)
[2021-07-25 10:25] LABS: BACTERIA,URINE NEGATIVE /HPF; SQUAMOUS EPITHELIAL CELL,UR 0-2 /HPF
[2021-07-25 10:30] LABS: ALBUMIN 4.2 GM/DL (3.2-4.5); BILIRUBIN,TOTAL 0.9 MG/DL (0.1-1.0); CALCIUM 9.4 MG/DL (8.5-10.1); CREATININE SERUM 1.06 MG/DL (0.60-1.30); POTASSIUM 4.3 MMOL/L (3.6-5.0); TOTAL PROTEIN 8.5 GM/DL (6.4-8.2)
--- NOTE | 2021-07-25 10:33 | Diagnostic Imaging Report ---
INDICATION: Chest pain, preop for heart cath. COMPARISON: None. FINDINGS: A single view of the chest demonstrates clear lungs bilaterally. The heart is normal. There is no pneumothorax. The osseous structures are normal. IMPRESSION: Negative chest. Dictated by: Dictated on workstation # [id number]
[~2021-07-25 11:00] MED LIST changes: +ATOR40TA70 PO; -CATHETER FLUSH 10 ML SYR IV PRN; +HEParin (CATH LAB) 2,000 ML IV ONE; +LIDOCAINE 1% INJ 20 ML VIAL ONE; +NS IV 1000 ML 1,000 ML IV SCH; +NS IV 1000 ML 1,000 ML ONE; -REGADENOSON 0.4 MG/5 ML SYR (LEXISCAN) IV ONE
--- NOTE | 2021-07-25 11:08 | Conscious Sedation/ASA ---
Conscious Sedation Pre-Proced Time 11:07 ASA Score 3 For ASA 3 and 4: Consider anesthesia and medical clearance. Also, for patients with a history of failed moderate sedation consider anesthesia. Airway Lungs Heart ASA score ASA 1: a normal healthy patient ASA 2: a patient with a mild systemic disease (mid diabetes, controlled hypertension, obesity x ASA 3: a patient with a severe systemic disease that limits activity (angina, COPD, prior Myocardial infarction) ASA 4: a patient with an incapacitating disease that is a constant threat to life (CHF, renal failure) ASA 5: a moribund patient not expected to survive 24 hrs. (ruptured aneurysm) ASA 6: a declared brain- patient whose organs are being harvested. For emergent operations, add the letter E after the classification Mallampati Classification Grade 3 Sedation Plan Analgesia, Amnesia, Plan communicated to team members, Discussed options with patient/fam, Discussed risks with patient/fam The patient is an appropriate candidate to undergo the planned procedure, sedation, and anesthesia. The patient immediately re-assessed prior to indication. CHELY MARIN MD Jul 25, 2021 11:08
[2021-07-25] MEDS ORDERED: MIDAZOLAM 5 MG/5 ML (VERSED) VIAL ONE (11:09)
[2021-07-25] MEDS ORDERED: fentaNYL INJ 100 MCG/2 ML AMP ONE (11:09)
[2021-07-25] MEDS ORDERED: HEParin 1000 UNIT/ML (10ML VIAL) FOR BOLUS ONE (11:09)
[2021-07-25] MEDS ORDERED: VERAPAMIL 5 MG/2 ML (CALAN) VIAL IV ONE (11:09)
[2021-07-25] MEDS ORDERED: NITRO DRIP 25000 MCG/D5W 250 ML IV ONE (11:10)
[2021-07-25] MEDS ORDERED: NS IV 1000 ML 1,000 ML IV SCH (11:45)
--- NOTE | 2021-07-25 11:46 | Discharge Inst-Post CATH ---
Discharge Inst-CATH/EP Problems Reviewed?: Yes Post Cardiac Cath/EP D/C Inst Follow Up/Plan Appointment with Dr. Dowd's office in 2 to 4 weeks <b>CARDIAC CATH/EP PROCEDURE DISCHARGE INSTRUCTIONS</b> ACTIVITY * Go Home directly and rest. * Limit activity of the leg (or wrist if it was used) for 7 days including aer obics, swimming, jogging, bicycling, etc. * Restrict stair-climbing for 7 days if possible, if not, climb up with your non-cath leg, then bring together on the same step. * Avoid lifting, pushing, pulling or excessive movement of the affected extremi ty for 7 days. * Customary sexual activity may be resumed after 2 days-use caution not to use a position that strains or causes pain to the affected extremity. * No driving for 24 hours. * NO SMOKING. * Avoid straining for bowel movements for 7 days. * Gentle walking on level ground is allowed. * Returning to work will depend on the type of procedure and the results. Your doctor will discuss this with you. CALL YOUR DOCTOR FOR ANY OF THE FOLLOWING: *If bleeding from the puncture site occurs- Apply gentle pressure to site with clean cloth and call your doctor or EMS. * If a knot or lump forms under the skin, increases in size, or causes pain. * If bruising appears to be worsening or moving further down your leg instead of disappearing. * Temperature above 101 F. CARE OF YOUR GROIN INCISION; * Bruising or purple discoloration of the skin near the puncture site is common. * You may shower only, no bathtub bathing for 5 days. Be careful to avoid slipping as your leg may feel stiff. * If a closure device was used on your femoral artery, please see the attached guide regarding care of the device and your leg. * Leave dressing on FOR 24 hours. CARE OF YOUR WRIST INCISION; * Bruising or purple discoloration of the skin near the puncture site is common. * You may shower. * DO NOT submerge wrist. * Leave dressing on FOR 24 hours. CHELY DOWD MD Jul 25, 2021 11:46
--- NOTE | 2021-07-25 11:49 | Cardiac Cath Report ---
Cardiac Cath Report Physician (s)/Bioinformatics Assistant (s) Physician CHELY MARIN MD Pre-Procedure Diagnosis Pre-Procedure Diagnosis: Coronary artery disease Post-Procedure Note Procedure Start Date: Jul 25, 2021 Name of Procedure: Left heart catheterization Findings/Procedure Note PROCEDURE NOTE: 66-year-old gentleman with history of myocardial infarction, had an abnormal stress test with reversible ischemia involving the inferior and inferolateral wall, scheduled for cardiac catheterization possible PTCA. After explaining the procedure to the patient, all pros and cons were explained, all questions were answered. The patient signed the consent and then he was placed on the cardiac catheterization laboratory. Groin was prepped SL fashion local anesthesia was used. Sheath placed in the right radial artery, [place] catheter was used and advanced to the left ventricular cavity, pressure was measured, pullback LV to aorta was done, engaged the right and left coronary disease system, angiogram was done. At the end of the procedure the sheath was removed. Vascular band was used FINDINGS: Hemodynamics LV 85/8, end-diastolic pressure of 8 Aorta 92/61 mean of 75 ANATOMY: Left Main is free of obstructive disease Left Anterior Descending has mild tortuosity with no obstructive disease Left Circumflex is large dominant artery with patent stent in the midportion, no significant obstructive disease Right Coronary Artery is small to moderate in size with mild disease nonobstructive disease LV Gram was not done, pressure was measured CONCLUSION: 1. Patent stent in the mid circumflex artery, mild disease distally nonobstructive disease 2. Otherwise mild coronary artery disease nonobstructive disease 3. Normal left ventricular end-diastolic pressure DISCUSSION AND RECOMMENDATION: Patient had an abnormal stress test probably due to the old myocardial infarction and some scarring at the myocardium. He has no significant obstructive disease. Medical therapy is recommended Anesthesia Type: Conscious Sedation Estimated blood loss (mL): 15 ml Contrast Amount: 35 ml Total Radiation Dose: 194 mGy Post-Procedure Diagnosis Post-operative diagnosis: Coronary artery disease Hypertension Hyperlipidemia CHELY MARIN MD Jul 25, 2021 11:49
== END 2021-07-25 14:15 | disposition home or self-care (01) ==
LOC: CATH 11:00
PROVIDERS: ATTEND Internal Medicine Cardiovascular Disease
DX: I25.10 Atherosclerotic heart disease of native coronary artery without angina pectoris (principal); I10 Essential (primary) hypertension; E78.2 Mixed hyperlipidemia; I65.23 Occlusion and stenosis of bilateral carotid arteries; I25.2 Old myocardial infarction; Z95.5 Presence of coronary angioplasty implant and graft; Z79.82 Long term (current) use of aspirin; Z79.4 Long term (current) use of insulin; Z79.899 Other long term (current) drug therapy; Z79.02 Long term (current) use of antithrombotics/antiplatelets
CPT/HCPCS: 71045; 80053; 80061; 81000; 85027; 85610; 85730; 87081; 93458; C1894; 36415

== ENCOUNTER 2022-01-17 05:36 | Outpatient (CLI) | payer MEDICARE ==
[~2022-01-17] VITALS: Ht 175.3 cm; Wt 82.1 kg
[~2022-01-17 05:36] MED LIST changes: -HEParin (CATH LAB) 2,000 ML IV ONE; -LIDOCAINE 1% INJ 20 ML VIAL ONE; -NS IV 1000 ML 1,000 ML IV SCH; -NS IV 1000 ML 1,000 ML ONE
[2022-01-17] MEDS ORDERED: SEMA0.25 SQ (08:39)
== END 2022-01-17 10:13 | disposition home or self-care (01) ==
LOC: PREOP 05:36
PROVIDERS: ATTEND Surgery
DX: Z01.818 Encounter for other preprocedural examination (principal)

== ENCOUNTER 2022-01-24 11:18 | Day surgery (SDC) | payer MEDICARE ==
[~2022-01-24] VITALS: Ht 175 cm; Wt 82.1 kg
[~2022-01-24 11:18] MED LIST changes: +SEMA0.25 SQ
[2022-01-24] MEDS ORDERED: LACTATED RINGERS 1,000 ML IV STA (11:22)
[2022-01-24] MEDS ORDERED: LACTATED RINGERS 1,000 ML IV ONE (11:29)
[2022-01-24 11:33] VITALS: BP 128/87
[2022-01-24] MEDS ORDERED: MIDAZOLAM 2 MG/2 ML (VERSED) VIAL ONE (12:41)
[2022-01-24] MEDS ORDERED: PROPOFOL INJECTION 50 ML IV ONE (12:41)
--- NOTE | 2022-01-24 13:02 | Progress Note-Pre Operative ---
Pre-Operative Progress Note Date of Available H&P: Jan 14, 2022 Date H&P Reviewed: Jan 24, 2022 Time H&P Reviewed: 13:01 History & Physical: H&P Reviewed, Patient Examed, No changes noted Pre-Operative Diagnosis: screening colonoscopy AG ORTEZ DO Jan 24, 2022 13:02
--- NOTE | 2022-01-24 13:26 | Progress Note-Post Operative ---
Post-Operative Progess Note Surgeon (s)/Directory Clerk (s) Surgeon AG ORTEZ DO Directory Clerk: na Pre-Operative Diagnosis screening colonoscopy Post-Operative Diagnosis normal colon Procedure & Operative Findings Date of Procedure 01/24/22 Procedure Performed/Findings colonoscopy Anesthesia Type per tram driver Estimated Blood Loss Estimated blood loss (mL): minimal Specimens/Packing Specimens Removed na AG ORTEZ DO Jan 24, 2022 13:26
--- NOTE | 2022-01-24 13:27 | Anesthesia-General Post-Op ---
MAC Patient Condition Mental Status/LOC: Same as Preop Cardiovascular: Satisfactory Nausea/Vomiting: Absent Respiratory: Satisfactory Pain: Controlled Complications: Absent Post Op Complications Complications None Follow Up Care/Instructions Patient Instructions None needed. Anesthesiology Discharge Order Discharge Order Patient is doing well, no complaints, stable vital signs, no apparent adverse anesthesia problems. No complications reported per nursing. ASHLY FAJARDO CRNA Jan 24, 2022 13:27
--- NOTE | 2022-01-24 13:27 | Discharge Inst-Simple/Standard ---
Discharge Inst-Standard Patient Instructions/Follow Up Plan of Care/Instructions/FU: Candie 5 years. Any issues before that be seen at that time. Activity as Tolerated: Yes Discharge Diet: Regular Diet (high fiber) AG ORTEZ DO Jan 24, 2022 13:27
[2022-01-24 13:28] VITALS: BP 91/63
[2022-01-24 13:33] VITALS: BP 96/59
[2022-01-24 13:38] VITALS: BP 96/65
[2022-01-24 13:50] VITALS: BP 96/65
[2022-01-24 14:10] VITALS: BP 96/65
--- NOTE | 2022-01-24 22:12 | OPERATIVE REPORT ---
DATE OF SERVICE: 01/24/2022 PREOPERATIVE DIAGNOSIS: Screening colonoscopy. POSTOPERATIVE DIAGNOSIS: Normal colon. PROCEDURE: Colonoscopy. SURGEON: Ag Schreiber DO ANESTHESIA: Per IRONING WORKER. ESTIMATED BLOOD LOSS: None. COMPLICATIONS: None. INDICATIONS: The patient is a 66-year-old male needing colonoscopy. He understands risks and benefits of procedure and wishes to proceed. Consent was signed in the chart. DESCRIPTION OF PROCEDURE: The patient was taken to endoscopy suite, placed in left lateral recumbent position. Timeout was performed. Digital rectal exam was performed. No palpable polyps, masses or ulcerations. Scope was inserted in the rectum and advanced all the way to cecum with minimal difficulty. Prep was adequate. Scope was slowly retracted back. No polyps, masses or ulcerations within the cecum, ascending, transverse, descending and sigmoid colon. Once in the rectum, scope was retroflexed noting no other pathology. Scope was returned to its normal position, slowly withdrawn until completely removed. The patient tolerated the procedure well without any complications, taken to recovery room in stable condition. RECOMMENDATIONS: The patient will need repeat colonoscopy in five years due to family history of colon cancer. Any issues before that be seen at that time. Job ID: [id number] DocumentID: [id number] Dictated Date: 01/24/2022 13:29:08 Leather Shaver Date: 01/24/2022 22:11:36 Dictated By: AG SCHREIBER DO
== END 2022-01-24 14:11 | disposition home or self-care (01) ==
LOC: SDC 11:18 → ENDO 14:11
PROVIDERS: ATTEND Surgery
DX: Z12.11 Encounter for screening for malignant neoplasm of colon (principal); Z87.891 Personal history of nicotine dependence; Z79.02 Long term (current) use of antithrombotics/antiplatelets

== ENCOUNTER 2022-05-25 12:33 | Observation (INO) | payer MEDICARE ==
[2022-05-25] VITALS (11 sets, daily range): BP systolic 111–155; BP diastolic 64–88
[~2022-05-25] VITALS: Ht 182 cm; Wt 91.0 kg
[2022-05-25] MEDS ORDERED: NITROGLYCERIN 2% OINT 1 GM UNIT DOSE PACKET TOP STA (12:45)
[2022-05-25] MEDS ORDERED: ANTACID SUSP 30 ML UDC (MYLANTA) PO ONE (12:45)
[2022-05-25] MEDS ORDERED: FAMOTIDINE 20 MG (PEPCID) TABLET PO STA (12:45)
[2022-05-25] MEDS ORDERED: ASPIRIN 81 MG CHEW (CHILDREN'S ASA) PO ONE (12:45)
[2022-05-25] MEDS ORDERED: LIDOCAINE 2% VISCOUS 15 ML UDC PO ONE (12:45)
--- NOTE | 2022-05-25 12:49 | ED Chest Pain ---
General Chief Complaint: Chest Pain Stated Complaint: UPPER BACK PAIN/CHEST TIGHTNESS Nursing Triage Note: PT AMB TO RM 5 W CO OF CHEST PAIN RATES 7-8 STARTED THIS AM. FROM CENTER OF CHEST TO BACK. HAS HX STENTS Source: patient Exam Limitations: no limitations History of Present Illness Date Seen by Provider: May 25, 2022 Time Seen by Provider: 12:36 Initial Comments 67-year-old male with past medical history of CAD with stents, hypertension, hyperlipidemia, and diabetes coming in due to upper back pain. Started at 7 AM, radiates to his arm, similar to prior episode in the past where he believes he received stenting. Has been somewhat constant since 7 AM, although he is not having any pain at this moment. He took 2 baby aspirin. The pain is sharp, nothing really seems to make it better or worse. Otherwise denying any fever, cough, shortness of breath, nausea, vomiting, diarrhea, sweats, weakness, numbness, abdominal pain, or any other concerns. Allergies and Home Medications Allergies Coded Allergies: No Known Drug Allergies (Unverified , 10/18/20) Patient Home Medication List Home Medication List Reviewed: Yes Aspirin (Aspirin EC) 81 Mg Tablet.dr, 81 MG PO DAILY, (Reported) Entered as Reported by: MATT CHOWDHURY on 10/19/20 1031 Atorvastatin Calcium (Atorvastatin Calcium) 40 Mg Tablet, 40 MG PO HS, (Reported) Entered as Reported by: MARITZA STAHL on 07/25/21 1007 Clopidogrel Bisulfate (Clopidogrel) 75 Mg Tablet, 75 MG PO DAILY Prescribed by: CHELY DOWD on 10/20/20 0834 Semaglutide (Ozempic) 0.25 Mg/0.2 Ml Pen.injctr, 0.25 MG SQ WEEK, (Reported) Entered as Reported by: GEOVANNI SINGH on 01/17/22 0839 Review of Systems Review of Systems Constitutional: No fever EENTM: No Symptoms Reported Respiratory: No Symptoms Reported Cardiovascular: See HPI Gastrointestinal: No Symptoms Reported Genitourinary: No Symptoms Reported Musculoskeletal: no symptoms reported Skin: no symptoms reported Psychiatric/Neurological: No Symptoms Reported Endocrine: No Symptoms Reported Hematologic/Lymphatic: No Symptoms Reported All Other Systems Reviewed Negative Unless Noted: Yes Past Fukgehs-Qqrjeh-Ucsira Hx Patient Social History Tobacco Use?: No Substance use?: No Alcohol Use?: Yes Alcohol type: Beer Alcohol Frequency: Rarely Pt feels they are or have been: No Immunizations Up To Date Tetanus Booster (TDap): Unknown Influenza Vaccine Up-to-Date: No; Not Current First/Initial COVID19 Vaccinat: NO Second COVID19 Vaccination Doug: NO Third COVID19 Vaccination Date: NO Seasonal Allergies Seasonal Allergies: No Past Medical History Surgery/Hospitalization HX: DIABETES. STENTS Surgeries: Yes Coronary Stent, Gallbladder, Orthopedic Respiratory: No Pulmonary Embolism Currently Using CPAP: No Currently Using BIPAP: No Cardiac: Yes Heart Attack Neurological: No Genitourinary: No Gastrointestinal: No Musculoskeletal: No Endocrine: Yes Diabetes, Non-Insulin dep HEENT: No Cancer: No Psychosocial: No Integumentary: No Blood Disorders: No Adverse Reaction/Blood Tranf: No Physical Exam Vital Signs Vital Signs - First Documented 05/25/22 12:35 Pulse 64 Resp 18 Pulse Ox 95 Capillary Refill : Less Than 3 Seconds Height, Weight, BMI Height: '" Weight: lbs. oz. kg; 27.00 BMI Method: General Appearance: No Apparent Distress, WD/WN HEENT: PERRL/EOMI, Normal ENT Inspection, Pharynx Normal Neck: Full Range of Motion, Normal Inspection, Non Tender, Supple Respiratory: Chest Non Tender, Lungs Clear, Normal Breath Sounds, No Accessory Muscle Use, No Respiratory Distress Cardiovascular: Regular Rate, Rhythm, No Edema, Normal Peripheral Pulses Gastrointestinal: Normal Bowel Sounds, Non Tender, Soft; No Distended, No Guarding Extremity: Normal Capillary Refill, Normal Inspection, Normal Range of Motion, Non Tender, No Calf Tenderness, No Pedal Edema Neurologic/Psychiatric: Alert, No Motor/Sensory Deficits, Normal Mood/Affect Skin: Normal Color, Warm/Dry Lymphatic: No Adenopathy Progress/Results/Core Measures Results/Orders Lab Results Laboratory Tests Test 05/25/22 12:45 Range/Units White Blood Count 12.9 H 4.3-11.0 10^3/uL Red Blood Count 5.52 4.30-5.52 10^6/uL Hemoglobin 16.3 13.3-17.7 g/dL Hematocrit 49 40-54 % Mean Corpuscular Volume 88 80-99 fL Mean Corpuscular Hemoglobin 30 25-34 pg Mean Corpuscular Hemoglobin Concent 34 32-36 g/dL Red Cell Distribution Width 12.2 10.0-14.5 % Platelet Count 272 130-400 10^3/uL Mean Platelet Volume 8.4 L 9.0-12.2 fL Immature Granulocyte % (Auto) 1 % Neutrophils (%) (Auto) 82 H 42-75 % Lymphocytes (%) (Auto) 7 L 12-44 % Monocytes (%) (Auto) 7 0-12 % Eosinophils (%) (Auto) 3 0-10 % Basophils (%) (Auto) 0 0-10 % Neutrophils # (Auto) 10.6 H 1.8-7.8 10^3/uL Lymphocytes # (Auto) 1.0 1.0-4.0 10^3/uL Monocytes # (Auto) 0.9 0.0-1.0 10^3/uL Eosinophils # (Auto) 0.4 H 0.0-0.3 10^3/uL Basophils # (Auto) 0.0 0.0-0.1 10^3/uL Immature Granulocyte # (Auto) 0.1 0.0-0.1 10^3/uL Neutrophils % (Manual) 84 % Lymphocytes % (Manual) 7 % Monocytes % (Manual) 7 % Eosinophils % (Manual) 2 % Basophils % (Manual) 0 % Band Neutrophils 0 % Blood Morphology Comment NORMAL Prothrombin Time 13.0 12.2-14.7 SEC INR Comment 0.9 0.8-1.4 Activated Partial Thromboplast Time 21 L 24-35 SEC Sodium Level 139 135-145 MMOL/L Potassium Level 4.6 3.6-5.0 MMOL/L Chloride Level 110 H 98-107 MMOL/L Carbon Dioxide Level 19 L 21-32 MMOL/L Anion Gap 10 5-14 MMOL/L Blood Urea Nitrogen 25 H 7-18 MG/DL Creatinine 1.07 0.60-1.30 MG/DL Estimat Glomerular Filtration Rate 77 BUN/Creatinine Ratio 23 Glucose Level 141 H 70-105 MG/DL Calcium Level 8.8 8.5-10.1 MG/DL Corrected Calcium 8.7 8.5-10.1 MG/DL Magnesium Level 1.8 1.6-2.4 MG/DL Total Bilirubin 0.9 0.1-1.0 MG/DL Aspartate Amino Transf (AST/SGOT) 17 5-34 U/L Alanine Aminotransferase (ALT/SGPT) 20 0-55 U/L Alkaline Phosphatase 76 40-136 U/L Troponin I < 0.028 <0.028 NG/ML B-Type Natriuretic Peptide 13.3 <100.0 PG/ML Total Protein 7.7 6.4-8.2 GM/DL Albumin 4.1 3.2-4.5 GM/DL Lipase 23 8-78 U/L My Orders Orders - JAMES MAX MD Cbc With Automated Diff (05/25/22 12:45) Magnesium (05/25/22 12:45) Chest 1 View, Ap/Pa Only (05/25/22 12:45) Ekg Tracing (05/25/22 12:45) Comprehensive Metabolic Panel (05/25/22 12:45) Protime With Inr (05/25/22 12:45) Partial Thromboplastin Time (05/25/22 12:45) O2 (05/25/22 12:45) Monitor-Rhythm Ecg Trace Only (05/25/22 12:45) Ed Iv/Invasive Line Start (05/25/22 12:45) Lipase (05/25/22 12:45) Bnp [place] (05/25/22 12:45) Troponin I [place] (05/25/22 12:45) Nitroglycerin Ointment (Nitrobid Ointme (05/25/22 12:45) Aspirin Chewable Tablet (Baby Aspirin Ch (05/25/22 12:45) Lidocaine 2% Viscous 15 Ml (Xylocaine Vi (05/25/22 12:45) Famotidine Tablet (Pepcid Tablet) (05/25/22 12:45) Antacid Suspension (Mylanta Suspension (05/25/22 12:45) Manual Differential (05/25/22 12:45) Troponin I [place] (05/25/22 14:20) Ed Admission (Communication) (05/25/22 14:16) Medications Given in ED Current Medications Medications Dose Ordered Sig/Edy Route Start Time Stop Time Status Last Admin Dose Admin Al Hydrox/Mg Hydrox/Simethicone 30 ml ONCE ONCE PO 05/25/22 12:45 05/25/22 12:47 DC 05/25/22 13:03 30 ML Aspirin 162 mg ONCE ONCE PO 05/25/22 12:45 05/25/22 12:47 DC 05/25/22 13:01 162 MG Lidocaine HCl 15 ml ONCE ONCE PO 05/25/22 12:45 05/25/22 12:47 DC 05/25/22 13:03 15 ML Vital Signs/I&O 05/25/22 12:35 Pulse 64 Resp 18 B/P (MAP) Pulse Ox 95 Progress Progress Note : Progress Note 67-year-old male coming in due to back pain radiating through chest and arm. ABCs were intact and vitals were stable on presentation although he is hypertensive. Nitropaste applied, given GI cocktail as well as 2 more baby aspirin to bring him up to full dose today. Pain is very mild and almost absent at this point. Initial labs including troponin is negative. EKG nonischemic. Chest x-ray clear. I contacted Dr. Eden who will admit the patient under observation status. I then paged Dr. Marino for consultation. Of note, I reviewed the charts, the patient saw Dr. Dowd in July due to an abnormal stress test with reversible ischemia. He had cardiac catheterization in July which showed nonobstructive disease with no intervention, recommended medical management. Initial ECG Impression Date: May 25, 2022 Initial ECG Impression Time: 12:42 Initial ECG Rate: 61 Initial ECG Rhythm: Normal Sinus Comment Narrow QRS, normal axis, no significant ST changes or T wave abnormality Diagnostic Imaging Diagonstic Imaging: Xray (chest) Comments NAME: OSEI REAL [facility] REC#: [id number] PT STATUS: REG ER : 1955 PHYSICIAN: JAMES MAX MD ADMIT DATE: 05/25/22/ER Draft Date of Exam:05/25/22 CHEST 1 VIEW, AP/PA ONLY INDICATION: Chest pain COMPARISON: 07/25/2021 TECHNIQUE: Single radiograph chest dated 05/25/2022 FINDINGS: The cardiac silhouette is within normal limits in size. No significant pulmonary vascular congestion. The lungs are clear focal pulmonary opacity. No pleural effusion. No pneumothorax. Left shoulder arthroplasty. No acute osseous normality. IMPRESSION: No acute cardiopulmonary abnormality. Dictated on workstation # [id number] Dict: 05/25/22 1318 Trans: 05/25/22 1328 CVB [id number] Interpreted by: MICHELLE CERVANTES MD Electronically signed by: Departure Impression Primary Impression: Chest pain Qualified Codes: R07.82 - Intercostal pain Additional Impressions: CAD (coronary artery disease) Qualified Codes: I25.110 - Atherosclerotic heart disease of [place] coronary artery with unstable angina pectoris Diabetes Qualified Codes: E11.9 - Type 2 diabetes mellitus without complications Disposition: ADMITTED INPATIENT Condition: Stable Admissions Decision to Admit Reason: Admit from ER (General) Decision to Admit/Date: May 25, 2022 Time/Decision to Admit Time: 14:19 Departure-Patient Inst. Referrals: SHAHBAZ EDEN DO (PCP/Family) Primary Care Physician JAMES MAX MD May 25, 2022 12:49
[2022-05-25 13:10] LABS: BASOPHILS % (AUTO) 0 % (0-10); EOSINOPHILS # (AUTO) 0.4 10^3/uL (0.0-0.3); EOSINOPHILS % (AUTO) 3 % (0-10); HEMATOCRIT 49 % (40-54); HEMOGLOBIN 16.3 g/dL (13.3-17.7); LYMPHOCYTES % (AUTO) 7 % (12-44); MEAN CORPUSCULAR HEMOGLOBIN 30 pg (25-34); MEAN CORPUSCULAR HGB CONC 34 g/dL (32-36); MEAN CORPUSCULAR VOLUME 88 fL (80-99); MEAN PLATELET VOLUME 8.4 fL (9.0-12.2); MONOCYTES # (AUTO) 0.9 10^3/uL (0.0-1.0); MONOCYTES % (AUTO) 7 % (0-12); NEUTROPHILS # (AUTO) 10.6 10^3/uL (1.8-7.8); NEUTROPHILS % (AUTO) 82 % (42-75); PLATELET COUNT 272 10^3/uL (130-400); WHITE BLOOD COUNT 12.9 10^3/uL (4.3-11.0)
[2022-05-25 13:16] LABS: ALBUMIN 4.1 GM/DL (3.2-4.5); INR 0.9 (0.8-1.4)
[2022-05-25 13:17] LABS: POTASSIUM 4.6 MMOL/L (3.6-5.0)
[2022-05-25 13:18] LABS: CALCIUM 8.8 MG/DL (8.5-10.1)
[2022-05-25 13:19] LABS: TOTAL PROTEIN 7.7 GM/DL (6.4-8.2)
[2022-05-25 13:21] LABS: BILIRUBIN,TOTAL 0.9 MG/DL (0.1-1.0)
[2022-05-25 13:23] LABS: CREATININE SERUM 1.07 MG/DL (0.60-1.30)
[2022-05-25 13:26] LABS: MAGNESIUM 1.8 MG/DL (1.6-2.4)
--- NOTE | 2022-05-25 13:28 | Diagnostic Imaging Report ---
INDICATION: Chest pain COMPARISON: 07/25/2021 TECHNIQUE: Single radiograph chest dated 05/25/2022 FINDINGS: The cardiac silhouette is within normal limits in size. No significant pulmonary vascular congestion. The lungs are clear focal pulmonary opacity. No pleural effusion. No pneumothorax. Left shoulder arthroplasty. No acute osseous normality. IMPRESSION: No acute cardiopulmonary abnormality. Dictated by: Dictated on workstation # [id number]
[2022-05-25 14:09] LABS: BAND NEUTROPHILS 0 %; BASOPHILS % (MANUAL) 0 %; EOSINOPHILS % (MANUAL) 2 %; LYMPHOCYTES % (MANUAL) 7 %; MONOCYTES % (MANUAL) 7 %; NEUTROPHILS % (MANUAL) 84 %; RBC MORPH NORMAL
[2022-05-25] MEDS ORDERED: LACTULOSE SYRUP 10GM/15ML (ENULOSE) 30ML UDC PO PRN (15:00)
[2022-05-25] MEDS ORDERED: morphine INJ 4 MG/ML 1 ML (VIAL/SYRINGE) IV PRN (15:00)
[2022-05-25] MEDS ORDERED: BISACODYL 10 MG SUPP (DULCOLAX) PR PRN (15:00)
[2022-05-25] MEDS ORDERED: polyethylene glycoL POWDER 17 GM (MIRALAX) PACK PO PRN (15:00)
[2022-05-25] MEDS ORDERED: diphenhydrAMINE 25 MG TAB (BENADRYL) PO PRN (15:00)
[2022-05-25] MEDS ORDERED: ANTACID SUSP 30 ML UDC (MYLANTA) PO PRN (15:00)
[2022-05-25] MEDS ORDERED: ONDANSETRON 4 MG/2 ML (SDV) Z0FRAN IV PRN (15:00)
[2022-05-25] MEDS ORDERED: PATIENT MAY USE OWN MEDS, ALL PO SCH (15:00)
[2022-05-25] MEDS ORDERED: MILK OF MAGNESIA 400 MG/5 ML 30 ML UDC PO PRN (15:00)
[2022-05-25] MEDS ORDERED: diphenhydrAMINE 50 MG/ML INJ (BENADRYL) IVP PRN (15:00)
[2022-05-25] MEDS ORDERED: ACETAMINOPHEN 325 MG TABLET PO PRN (15:00)
[2022-05-25] MEDS ORDERED: MELATONIN 3 MG TABLET PO PRN (15:00)
[2022-05-25] MEDS ORDERED: NITROGLYCERIN 0.4 MG SL TABS BTL 25'S SL PRN (15:00)
[2022-05-25] MEDS ORDERED: CALCIUM CARBONATE 500 MG (TUMS) TAB.CHEW PO PRN (15:00)
[2022-05-25] MEDS ORDERED: ONDANSETRON 4 MG (ZOFRAN) ORAL DISSOLVE TAB PO PRN (15:00)
[2022-05-25] MEDS ORDERED: ATOR20TA66 PO (15:12)
[2022-05-25] MEDS ORDERED: DAPA10TA PO (15:12)
[2022-05-25] MEDS: ENOXAPARIN 40 MG/0.4 ML (LOVENOX) SYR SC SCH (15:57)
[2022-05-25] MEDS: inSUlin ASPART (NovoLOG) 1 UNIT/0.01 ML (CHARGE PER UNIT) SC SCH ×2 (15:58→21:03)
[2022-05-25] MEDS: SENNOSIDES 8.6 MG (SENOKOT) TAB PO SCH (19:38)
[2022-05-25] MEDS: DOCUSATE SODIUM 100 MG (COLACE) CAP PO SCH (19:38)
[2022-05-26 03:30] VITALS: BP 106/59
[2022-05-26 05:49] LABS: BASOPHILS % (AUTO) 0 % (0-10); EOSINOPHILS # (AUTO) 0.4 10^3/uL (0.0-0.3); EOSINOPHILS % (AUTO) 5 % (0-10); HEMATOCRIT 47 % (40-54); HEMOGLOBIN 15.6 g/dL (13.3-17.7); LYMPHOCYTES # (AUTO) 0.8 10^3/uL (1.0-4.0); LYMPHOCYTES % (AUTO) 10 % (12-44); MEAN CORPUSCULAR HEMOGLOBIN 29 pg (25-34); MEAN CORPUSCULAR HGB CONC 33 g/dL (32-36); MEAN CORPUSCULAR VOLUME 88 fL (80-99); MEAN PLATELET VOLUME 8.7 fL (9.0-12.2); MONOCYTES # (AUTO) 0.6 10^3/uL (0.0-1.0); MONOCYTES % (AUTO) 8 % (0-12); NEUTROPHILS # (AUTO) 5.7 10^3/uL (1.8-7.8); NEUTROPHILS % (AUTO) 75 % (42-75); PLATELET COUNT 248 10^3/uL (130-400); WHITE BLOOD COUNT 7.6 10^3/uL (4.3-11.0)
[2022-05-26 05:59] LABS: ALBUMIN 3.7 GM/DL (3.2-4.5); CHLORIDE 108 MMOL/L (98-107); POTASSIUM 3.9 MMOL/L (3.6-5.0); SODIUM 137 MMOL/L (135-145)
[2022-05-26 06:00] LABS: CALCIUM 8.5 MG/DL (8.5-10.1)
[2022-05-26 06:01] LABS: TRIGLYCERIDES 86 MG/DL (<150); VLDL CHOLESTEROL 17 MG/DL (5-40)
[2022-05-26 06:02] LABS: GLUCOSE 123 MG/DL (70-105); TOTAL PROTEIN 6.9 GM/DL (6.4-8.2)
[2022-05-26 06:03] LABS: CARBON DIOXIDE 20 MMOL/L (21-32)
[2022-05-26 06:04] LABS: BILIRUBIN,TOTAL 0.8 MG/DL (0.1-1.0)
[2022-05-26 06:06] LABS: ALKALINE PHOSPHATASE 69 U/L (40-136); CHOLESTEROL 108 MG/DL (< 200); CREATININE SERUM 0.84 MG/DL (0.60-1.30); GFR ESTIMATED 96
[2022-05-26 06:07] LABS: BUN/CREATININE RATIO 27
[2022-05-26 06:08] LABS: HDL CHOLESTEROL 23 MG/DL (40-60)
[2022-05-26] MEDS: inSUlin ASPART (NovoLOG) 1 UNIT/0.01 ML (CHARGE PER UNIT) SC SCH ×3 (06:08→15:11)
[2022-05-26 06:09] LABS: ALANINE AMINOTRANSFERASE 19 U/L (0-55)
--- NOTE | 2022-05-26 06:33 | Short Stay Summary ---
History of Present Illness History of Present Illness Reason for visit/HPI Chief complaint: Atypical chest pain HPI: This is a 67-year-old male clinic patient of mine who has a past medical history of CAD status post emergent stent placement in 2020 and diabetes who presents to the ER with complaints of chest pain and not feeling well. All troponins have been negative. Patient denies any pain right now. Cardiology will evaluate him and likely discharge home. Date of Admission May 25, 2022 at 14:16 Date of Discharge 05/26/22 Time Seen by Provider: 11:00 Attending Physician Yessy Eden DO Admitting Physician Admitting Physician: Yessy Eden DO Attending Physician: Yessy Eden DO Consult Allergies and Home Medications Allergies Coded Allergies: No Known Drug Allergies (Unverified , 05/25/22) Patient Home Medication List Home Medication List Reviewed: Yes Aspirin (Aspirin EC) 81 Mg Tablet.dr, 81 MG PO DAILY, (Reported) Entered as Reported by: MATT CHOWDHURY on 10/19/20 1031 Last Action: Held Atorvastatin Calcium (Atorvastatin Calcium) 20 Mg Tablet, 20 MG PO HS, (Reported) Entered as Reported by: FREDDY MOSQUEDA on 05/25/22 151 Last Action: Continued Clopidogrel Bisulfate (Clopidogrel) 75 Mg Tablet, 75 MG PO DAILY Prescribed by: CHELY MARIN on 10/20/20 0834 Last Action: Continued Dapagliflozin Propanediol (Farxiga) 10 Mg Tablet, 10 MG PO DAILY, (Reported) Entered as Reported by: FREDDY MOSQUEDA on 05/25/22 1512 Last Action: Held Discontinued Medications Atorvastatin Calcium (Atorvastatin Calcium) 40 Mg Tablet, 40 MG PO HS, (Reported) Discontinued Reason: Prescription changed Entered as Reported by: MARITZA STAHL on 07/25/21 1007 Semaglutide (Ozempic) 0.25 Mg/0.2 Ml Pen.injctr, 0.25 MG SQ WEEK, (Reported) Discontinued Reason: No Longer Taking Entered as Reported by: GEOVANNI SINGH on 01/17/22 0839 Last Action: Discontinued Past Wrltzjz-Tyzucy-Xfkorb Hx Patient Social History Marrital Status: Employed/Student: employed Smoking Status: Never a Smoker 2nd Hand Smoke Exposure: No Recent Hopitalizations: No Have you traveled recently?: No Alcohol Use?: Yes Pt feels they are or have been: No Immunizations Up To Date Tetanus Booster (TDap): Unknown Seasonal Allergies Seasonal Allergies: No Surgeries Yes Coronary Stent, Gallbladder, Orthopedic Respiratory No Pneumonia Currently Using CPAP: No Currently Using BIPAP: No Cardiovascular Yes Coronary Artery Disease, Heart Attack Neurological No Genitourinary No Gastrointestinal No Musculoskeletal No Endocrine History of Endocrine Disorders: Yes Endocrine Disorders: Diabetes, Non-Insulin dep HEENT History of HEENT Disorders: No Cancer No Psychosocial History of Psychiatric Problem: No Integumentary History of Skin or Integumenta: No Blood Transfusions History of Blood Disorders: No Adverse Reaction to a Blood Tr: No Review of Systems Constitutional: see HPI, malaise, weakness Cardiovascular: chest pain Physical Exam Vital Signs Vital Signs - First Documented 05/25/22 05/25/22 05/25/22 05/25/22 12:35 14:40 15:00 15:07 Temp 36.4 Pulse 64 Resp 18 B/P (MAP) 102/64 Pulse Ox 95 O2 Delivery Room Air Capillary Refill : Less Than 3 Seconds Height, Weight, BMI Height: '" Weight: lbs. oz. kg; 27.47 BMI Method: General Appearance: No Apparent Distress, WD/WN Eyes: Bilateral Eye Normal Inspection, Bilateral Eye PERRL, Bilateral Eye EOMI HEENT: PERRL/EOMI, Normal ENT Inspection, Pharynx Normal Neck: Full Range of Motion, Normal Inspection, Non Tender, Supple, Carotid Bruit Respiratory: Chest Non Tender, Lungs Clear, Normal Breath Sounds, No Accessory Muscle Use, No Respiratory Distress Cardiovascular: Regular Rate, Rhythm, No Edema, No Gallop, No JVD, No Murmur, Normal Peripheral Pulses Gastrointestinal: Normal Bowel Sounds, No Organomegaly, No Pulsatile Mass, Non Tender, Soft Back: Normal Inspection, No CVA Tenderness, No Vertebral Tenderness Extremity: Normal Capillary Refill, Normal Inspection, Normal Range of Motion, Non Tender, No Calf Tenderness, No Pedal Edema Neurologic/Psychiatric: Alert, Oriented x3, No Motor/Sensory Deficits, Normal Mood/Affect Skin: Normal Color, Warm/Dry Lymphatic: No Adenopathy Clinical Quality Measures AMI/AHF: ASA po Prior to arrival: Yes (TOOK TWO 81MG ASA AT HOME) Short Stay Diagnosis Discharge Diagnosis-Short Stay Admission Diagnosis: Chest pain atypical type Diabetes CAD previous stent Final Discharge Diagnosis: Chest pain atypical type without evidence of ACS Diabetes CAD previous stent Conclusion Labs Laboratory Tests 05/25/22 12:45: White Blood Count 12.9H, Red Blood Count 5.52, Hemoglobin 16.3, Hematocrit 49, Mean Corpuscular Volume 88, Mean Corpuscular Hemoglobin 30, Mean Corpuscular Hemoglobin Concent 34, Red Cell Distribution Width 12.2, Platelet Count 272, Mean Platelet Volume 8.4L, Immature Granulocyte % (Auto) 1, Neutrophils (%) (Auto) 82H, Lymphocytes (%) (Auto) 7L, Monocytes (%) (Auto) 7, Eosinophils (%) (Auto) 3, Basophils (%) (Auto) 0, Neutrophils # (Auto) 10.6H, Lymphocytes # (Auto) 1.0, Monocytes # (Auto) 0.9, Eosinophils # (Auto) 0.4H, Basophils # (Auto) 0.0, Immature Granulocyte # (Auto) 0.1, Neutrophils % (Manual) 84, Lymphocytes % (Manual) 7, Monocytes % (Manual) 7, Eosinophils % (Manual) 2, Basophils % (Manual) 0, Band Neutrophils 0, Blood Morphology Comment NORMAL, Prothrombin Time 13.0, INR Comment 0.9, Activated Partial Thromboplast Time 21L, Sodium Level 139, Potassium Level 4.6, Chloride Level 110H, Carbon Dioxide Level 19L, Anion Gap 10, Blood Urea Nitrogen 25H, Creatinine 1.07, Estimat Glomerular Filtration Rate 77, BUN/Creatinine Ratio 23, Glucose Level 141H, Calcium Level 8.8, Corrected Calcium 8.7, Magnesium Level 1.8, Total Bilirubin 0.9, Aspartate Amino Transf (AST/SGOT) 17, Alanine Aminotransferase (ALT/SGPT) 20, Alkaline Phosphatase 76, Troponin I < 0.028, B-Type Natriuretic Peptide 13.3, Total Protein 7.7, Albumin 4.1, Lipase 23 05/25/22 14:15: Troponin I < 0.028 05/25/22 18:45: Troponin I < 0.028 05/25/22 20:56: Glucometer 125H 05/25/22 23:30: Troponin I < 0.028 05/26/22 04:54: Troponin I < 0.028, White Blood Count 7.6, Red Blood Count 5.32, Hemoglobin 15.6, Hematocrit 47, Mean Corpuscular Volume 88, Mean Corpuscular Hemoglobin 29, Mean Corpuscular Hemoglobin Concent 33, Red Cell Distribution Width 12.3, Platelet Count 248, Mean Platelet Volume 8.7L, Immature Granulocyte % (Auto) 1, Neutrophils (%) (Auto) 75, Lymphocytes (%) (Auto) 10L, Monocytes (%) (Auto) 8, Eosinophils (%) (Auto) 5, Basophils (%) (Auto) 0, Neutrophils # (Auto) 5.7, Lymphocytes # (Auto) 0.8L, Monocytes # (Auto) 0.6, Eosinophils # (Auto) 0.4H, Basophils # (Auto) 0.0, Immature Granulocyte # (Auto) 0.1, Sodium Level 137, Potassium Level 3.9, Chloride Level 108H, Carbon Dioxide Level 20L, Anion Gap 9, Blood Urea Nitrogen 23H, Creatinine 0.84, Estimat Glomerular Filtration Rate 96, BUN/Creatinine Ratio 27, Glucose Level 123H, Calcium Level 8.5, Corrected Calcium 8.7, Total Bilirubin 0.8, Aspartate Amino Transf (AST/SGOT) 17, Alanine Aminotransferase (ALT/SGPT) 19, Alkaline Phosphatase 69, Total Protein 6.9, Albumin 3.7, Triglycerides Level 86, Cholesterol Level 108, LDL Cholesterol Direct 70, VLDL Cholesterol 17, HDL Cholesterol 23L Conclusion/Plan Discharge home YESSY EDEN DO May 26, 2022 06:33
[2022-05-26] MEDS: DOCUSATE SODIUM 100 MG (COLACE) CAP PO SCH (07:19)
[2022-05-26] MEDS: SENNOSIDES 8.6 MG (SENOKOT) TAB PO SCH (07:19)
[2022-05-26 07:32] VITALS: BP 110/67
[2022-05-26] MEDS ORDERED: ASPIRIN E.C. 81 MG (ECOTRIN) TAB PO SCH (09:00)
[2022-05-26] MEDS ORDERED: CLOPIDOGREL 75 MG (PLAVIX) TABLET PO SCH (09:00)
[2022-05-26 11:37] VITALS: BP 124/66
--- NOTE | 2022-05-26 13:49 | Consultation-Cardiology ---
HPI-Cardiology Cardiology Consultation: Date of Consultation 05/26/22 Time Seen by a Provider: 13:00 Date of Admission Attending Physician Yessy Owens DO Admitting Physician Admitting Physician: Ysesy Owens DO Attending Physician: Yessy Owens DO Consulting Physician DEEPA LONGORIA MD, MA, FACP, FACC, FSCAI, CCDS Physician requesting consult: Dr Owens Primary advanced manufacturing engineer: Dr Dowd HPI: Chief Complaint: Upper mid back pain 67 yo man with 4-5 hours of continuous, moderate, upper mid back pain, w/o agg ravating or relieving factors, with some associated feeling of mild bilateral shoulder discomfort, w/o associated symptoms, self-resolving, w/o recurrence. No shortness of breath. No palp or syncope or swelling. No n/v/d. No focal weakness. No gen weakness. No fever or chills. Wishes to go home Review of Systems-Cardiology Review of Systems Constitutional: As described under HPI; No weight loss, No weight gain Eyes: No vision change Ears/Nose/Throat: No ear discharge, No nasal drainage, No recent hearing loss Respiratory: As described under HPI Cardiovascular: As described under HPI Gastrointestinal: As described under HPI Genitourinary: No dysuria, No hematuria, No urine frequency changes Musculoskeletal: As describe under HPI Skin: No rash, No ulcerations Psychiatric/Neurological: No seizure, No focal weakness, No syncope Hematologic: No bleeding abnormalities All Other Systems Reviewed Negative Unless Noted: Yes EWL-Baccrg-Alkejf Hx Patient Social History 2nd Hand Smoke Exposure: No Have you traveled recently?: No Alcohol Use?: Yes Pt feels they are or have been: No Immunizations Up To Date Tetanus Booster (TDap): Unknown Past Medical History PMH As described under Assessment. Family Medical History Family Medical History: Does not report fam h/o early CAD or SCD Allergies and Home Medications Allergies Coded Allergies: No Known Drug Allergies (Unverified , 05/25/22) Patient Home Medication List Home Medication List Reviewed: Yes Aspirin (Aspirin EC) 81 Mg Tablet., 81 MG PO DAILY, (Reported) Entered as Reported by: MATT CHOWDHURY on 10/19/20 1031 Last Action: Held Atorvastatin Calcium (Atorvastatin Calcium) 20 Mg Tablet, 20 MG PO HS, (Reported) Entered as Reported by: FREDDY MOSQUEDA on 12/17/22 1512 Last Action: Continued Clopidogrel Bisulfate (Clopidogrel) 75 Mg Tablet, 75 MG PO DAILY Prescribed by: CHELY DOWD on 10/20/20 0834 Last Action: Continued Dapagliflozin Propanediol (Farxiga) 10 Mg Tablet, 10 MG PO DAILY, (Reported) Entered as Reported by: FREDDY MOSQUEDA on 05/25/221511 Last Action: Held Discontinued Medications Atorvastatin Calcium (Atorvastatin Calcium) 40 Mg Tablet, 40 MG PO HS, (Reported) Discontinued Reason: Prescription changed Entered as Reported by: MARITZA STAHL on 07/25/21 1007 Semaglutide (Ozempic) 0.25 Mg/0.2 Ml Pen.injctr, 0.25 MG SQ WEEK, (Reported) Discontinued Reason: No Longer Taking Entered as Reported by: GEOVANNI SINGH on 01/17/22 0839 Last Action: Discontinued Physical Exam-Cardiology Physical Exam Vital Signs/I&O 05/26/22 05/26/22 05/26/22 05/26/22 03:30 07:00 07:32 07:38 Temp 36.9 37.1 Pulse 81 65 68 Resp 20 18 B/P (MAP) 106/59 (75) 110/67 (81) Pulse Ox 94 95 O2 Delivery Room Air Room Air Room Air 05/26/22 05/26/22 05/26/22 08:35 11:37 12:43 Temp 37.3 Pulse 70 60 Resp 18 B/P (MAP) 124/66 (85) Pulse Ox 94 94 O2 Delivery Room Air Room Air 05/26/22 00:00 Intake Total 420 ml Balance 420 ml Capillary Refill : Less Than 3 Seconds Constitutional: AAO x 3, well-developed, well-nourished HEENT: PERRL, EOMI, hearing is well preserved; No xanthelasmas are seen Neck: carotid pulses are 2 + bilaterally, with good upstrokes Respiratory: No accessory muscle use; chest expansion is symmetric, other (good, bilateral air entry) Cardiovascular: regular rate-rhythm, S1 and S2, systolic murmur (soft CARMEN at card base) Gastrointestinal: No tender; soft; No guarding, No rebound; audible bowel sounds Extremities: No clubbing, No cyanosis, No significant edema Neurologic/Psychiatric: oriented x 3, other (moves all limbs equally) Skin: No rash on exposed areas, No ulcerations on exposed areas Data Review Labs Laboratory Tests 05/25/22 14:15: Troponin I < 0.028 05/25/22 18:45: Troponin I < 0.028 05/25/22 20:56: Glucometer 125H 05/25/22 23:30: Troponin I < 0.028 05/26/22 04:54: White Blood Count 7.6, Red Blood Count 5.32, Hemoglobin 15.6, Hematocrit 47, Mean Corpuscular Volume 88, Mean Corpuscular Hemoglobin 29, Mean Corpuscular Hemoglobin Concent 33, Red Cell Distribution Width 12.3, Platelet Count 248, Mean Platelet Volume 8.7L, Immature Granulocyte % (Auto) 1, Neutrophils (%) (Auto) 75, Lymphocytes (%) (Auto) 10L, Monocytes (%) (Auto) 8, Eosinophils (%) (Auto) 5, Basophils (%) (Auto) 0, Neutrophils # (Auto) 5.7, Lymphocytes # (Auto) 0.8L, Monocytes # (Auto) 0.6, Eosinophils # (Auto) 0.4H, Basophils # (Auto) 0.0, Immature Granulocyte # (Auto) 0.1, Sodium Level 137, Potassium Level 3.9, Chloride Level 108H, Carbon Dioxide Level 20L, Anion Gap 9, Blood Urea Nitrogen 23H, Creatinine 0.84, Estimat Glomerular Filtration Rate 96, BUN/Creatinine Ratio 27, Glucose Level 123H, Calcium Level 8.5, Corrected Calcium 8.7, Total Bilirubin 0.8, Aspartate Amino Transf (AST/SGOT) 17, Alanine Aminotransferase (ALT/SGPT) 19, Alkaline Phosphatase 69, Troponin I < 0.028, Total Protein 6.9, Albumin 3.7, Triglycerides Level 86, Cholesterol Level 108, LDL Cholesterol Dire ct 70, VLDL Cholesterol 17, HDL Cholesterol 23L Laboratory Tests 05/25/22 12:45 05/26/22 04:54 A/P-Cardiology Assessment/Admission Diagnosis Long episode of upper mid back pain on 05/25/22 - no evidence of ACS CAD - H/o LCX stenting in 2020 - Last card cath by Dr Dowd in Jul 2021 for similar symptoms: patent stent in mid LCX with mild disease in the distal vessel, no significant obstructive CAD seen in any coronary, normal LVEDP Echo done on 05/22/2021 with normal LV EF 50-55%, PA pressure 25-30 mmHg Hyperlipidemia - treated with statin, managed by pcp Borderline DM II - management is by his pcp Status post COVID-19 infection recovered in June 2020. Nonobstructive carotid artery stenosis per carotid duplex done May 2021. Discussion and Recomendations * Continue DAPT * Continue statin * Advised to return to ER if symptoms recur of if he has new symptoms * Advised to f/u with Dr Dowd next week Clinical Quality Measures AMI/AHF: ASA po Prior to arrival: Yes (TOOK TWO 81MG ASA AT HOME) DEEPA LONGORIA MD FACP FACC CCDS May 26, 2022 13:49
[2022-05-26] MEDS: ENOXAPARIN 40 MG/0.4 ML (LOVENOX) SYR SC SCH (14:08)
[2022-05-26 14:20] VITALS: BP 124/66
== END 2022-05-26 14:19 | disposition home or self-care (01) ==
LOC: EDUNIT# 12:33 → ER 12:36 → 4TH 14:16 → UNDOADMOB 14:16 → 4TH 15:00 → UNDODISOB 05-26 16:02
PROVIDERS: ADMIT Internal Medicine; ATTEND Internal Medicine
DX: R07.89 Other chest pain (principal); E11.9 Type 2 diabetes mellitus without complications; I25.10 Atherosclerotic heart disease of native coronary artery without angina pectoris; M54.9 Dorsalgia, unspecified; E78.5 Hyperlipidemia, unspecified; I65.29 Occlusion and stenosis of unspecified carotid artery; Z79.82 Long term (current) use of aspirin; Z79.84 Long term (current) use of oral hypoglycemic drugs; Z28.310 Unvaccinated for COVID-19
CPT/HCPCS: 71045; 80053 ×2; 80061; 82947; 83690; 83735; 83880; 84484 ×2; 85007; 85025; 85027; 85610; 85730; 93005 ×2; 93041; 94760; 96372 ×2; 99284; G0378; 36415